=== PATIENT | female | born 2000 | race American Indian/Alaskan Native ===

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

== ENCOUNTER 2022-04-06 22:10 | Emergency (ER) | payer MEDICAID ==
[2022-04-06 22:15] VITALS: BP 119/78
== END 2022-04-07 04:49 ==
LOC: ED 22:10
DX: Z00.00 Encounter for general adult medical examination without abnormal findings (principal); Z53.21 Procedure and treatment not carried out due to patient leaving prior to being seen by health care provider